=== PATIENT | female | born 1930 | race Caucasian/White ===

== ENCOUNTER 2016-07-21 11:03 | Emergency (ER) | payer OTHER, MEDICARE ==
[~2016-07-21] VITALS: Ht 160 cm; Wt 66.3 kg
[~2016-07-21 11:03] MED LIST: ADULT LOW DOSE81 M1 PO; COZAAR50 MG PO; Cozaar PO; DAILY VITAMIN1 EAC8 PO; Ecotrin PO; FLONASE16 G1 BOTH NARES; LEVOTHYROXINE100 MCG PO; Levothroid,Synthroid PO; MELATONIN3 MG PO; MYRBETRIQ25 MG PO; Melatonin PO; NABUMETONE500 MG PO; PREMARIN VAGI42.5 GM VG; RANITIDINE HCL75 MG PO; SYSTANE 0.3-0.1 EACH BOTH EYES; Theragran PO; VITAMIN D1000 INTUN PO; Vicodin,Norco 5/325 PO; celeBREX PO
[2016-07-21] MEDS ORDERED: KEFLEX500 MG PO (14:20)
[2016-07-21 15:05] VITALS: BP 133/71
== END 2016-07-21 15:06 | disposition home or self-care (01) ==
LOC: EME 11:03
PROC: 0HQDXZZ Repair Right Lower Arm Skin, External Approach (ICD-10-PCS; principal; 2016-07-21)
DX: S51.811A Laceration without foreign body of right forearm, initial encounter (principal); M25.511 Pain in right shoulder; R07.81 Pleurodynia; W01.198A Fall on same level from slipping, tripping and stumbling with subsequent striking against other object, initial encounter; Y92.003 Bedroom of unspecified non-institutional (private) residence as the place of occurrence of the external cause; I10 Essential (primary) hypertension; E03.9 Hypothyroidism, unspecified
CPT/HCPCS: 70450; 71010; 73030; 99281; 99284